=== PATIENT | female | born 1960 | race Caucasian/White ===

== ENCOUNTER 2016-05-21 23:36 | Emergency (ER) | payer BC ==
[~2016-05-21 23:36] MED LIST: AMBIEN PO; BENZONATATE; CALCIUM + D 6001 TA1 PO; CLARITIN10 M3 PO; DARVOCET-N 1001 TAB PO; FISH OIL 1,0001 CAP PO; FLEXERIL10 MG PO; IBUPROFEN800 MG PO; LAMISIL PO; LISINOPRIL5 MG PO; LORTAB 10-5001 EACH PO; MUCINEX DM1 TAB.SR .; MULTI VITAMIN1 EACH PO; NORCO 5/325 TAB1 TAB PO; OMEPRAZOLE20 M1 PO; OMNICEF; PREVACID PO; PROTONIX PO; SIMVASTATIN20 MG PO; VOLTAREN50 MG PO; ZITHROMAX PO
== END 2016-05-22 00:36 | disposition home or self-care (01) ==
LOC: CED 23:36
DX: M79.605 Pain in left leg (principal); I10 Essential (primary) hypertension; Z88.0 Allergy status to penicillin; Z88.2 Allergy status to sulfonamides; Z88.5 Allergy status to narcotic agent
CPT/HCPCS: 99283

== ENCOUNTER → 2016-05-22 | Outpatient (CLI) | payer BC ==
--- NOTE | ~2016-05-22 | US85 ---
[facility] A Service of [facility] RADIOLOGY TEXT RESULTS PATIENT: ERYN ZAMORA LOCATION: [facility] : 62 UNIT #: [id number] AGE: [address]: Gary Hopkins MD SEX: F ORDER DR: [id number] [facility] [address] [facility]. [place], [place] [address] [id number] O MR#: [id number] Acc #: [id number] NAME: ERYN ZAMORA : 1960 SEX: F STUDY DATE/TIME: 05/22/2016 7:35 UNIT: CGUS ROOM: STUDY DESCRIPTION: [facility] [place] [employer] Attending Physician: Gary Hopkins M.D. Ordering Physician: Gary Hopkins M.D. Primary Care Physician: No Primary Care Physician MEDICAL IMAGING REPORT This report is preliminary unless electronic signature is present EXAM Lower extremity ultrasound for DVT on the left, 05/22/2016. INDICATION 55-year-old female with left leg pain for 3-4 days and associated swelling for the same duration. Worsening symptoms. No history of DVT. Bunion surgery in September. TECHNIQUE [place]-scale, color Doppler, and spectral analysis of the left lower extremity was performed. COMPARISON STUDIES We have no comparisons. FINDINGS The examination is negative. There is no DVT in the left lower extremity. IMPRESSION Negative examination. No DVT in the left lower extremity. Dictated by... Edward Kwon M.D. THIS IS AN ELECTRONICALLY VERIFIED REPORT Edward Kwon M.D. at 05/22/2016 3:23 PM YANELIS/ky TD: 05/22/2016 11:30 JOB #: [id number] [facility] A Service [facility] RADIOLOGY TEXT RESULTS PATIENT: ERYN ZAMORA LOCATION: [facility] : 62 UNIT #: [id number] AGE: [address]: Gary Hopkins MD SEX: F ORDER DR: MEDICAL IMAGING REPORT COPY
== END | disposition home or self-care (01) ==
LOC: CGUS 07:01
DX: M79.605 Pain in left leg (principal)
CPT/HCPCS: 93971